=== PATIENT | female | born 1975 | race Two or more races ===

== ENCOUNTER 2016-11-13 13:37 | Inpatient (IN) ==
[2016-11-13] MEDS ORDERED: ONDANSETRON 4 MG/2 ML VIAL IV PRN (14:25)
[2016-11-13] MEDS ORDERED: BUTORPHANOL 2 MG/ML VIAL IV PRN (14:25)
[2016-11-13] MEDS ORDERED: MEPERIDINE 50 MG/1 ML VIAL IV PRN (14:25)
[2016-11-13] MEDS ORDERED: OXYTOCIN/LR 20 UNIT/1,000 ML BAG IV SCH (14:30)
[2016-11-13] MEDS: LACTATED RINGERS 1,000 ML IV SCH ×2 (14:50→15:53)
[2016-11-13 14:52] LABS: Basophils % 0.3 % (0.0-0.8); Eosinophils # 0.1 10*3/uL (0.0-0.87); Eosinophils % 0.7 % (0.00-10.9); Hemoglobin 11.2 GM/DL (12.0-16.0); Immature Granulocytes % 0.5 %; Immature Granulocytes Absolute 0.04 #; Lymphocytes # 1.9 10*3/uL (1.4-4.0); Lymphocytes % 22.1 % (21.3-54.2); Mean Corpuscular Hemoglobin 32 PG (27-34); Mean Corpuscular Volume 91.4 FL (87-102); Mean Platelet Volume 10.5 FL (9.6-12.0); Monocytes # 0.8 10*3/uL (0.11-0.8); Monocytes % 8.6 % (1.7-12.7); Neutrophils # 5.9 10*3/uL (1.4-7.4); Neutrophils % 67.8 % (38.7-73.9); Platelet Count 339 T/CUMM (130-400); Red Cell Distribution Width 12.5 % (9.3-17.3); White Blood Count 8.7 T/CUMM (4-12)
[2016-11-13 15:23] LABS: Albumin 2.3 G/DL (3.4-5.0); Bilirubin,Total 0.6 MG/DL (0.2-1.0); Calcium 9.4 MG/DL (8.5-10.1); Osmolality,Calculated 274.5 MOS/KG (273-304); Total Protein 5.8 G/DL (6.4-8.3)
--- NOTE | 2016-11-13 16:32 | OB/GYN History & Physical ---
History of Present Illness Chief complaint: In for active labor. History of present illness: Ms. Juan is a 41 year old female who is a 2 para 1 living 1 patient presented to the labor department in active labor. The risk and benefits were thoroughly discussed with the patient and her significant other through a meeting facilitator. Plan of care was discussed with Dr. Mccarty and all parties were in agreement with plan. The patient received her care through the [facility] and she received routine care her course was uneventful. labs she is O+, RPR is nonreactive, hepatitis B negative, HIV negative, GC chlamydia cultures negative, rubella is immune. Review of systems is negative with exception of above. The patient has had 1 previous vaginal delivery and that weighed 7-1/2 pounds and she reported no complications with that . Home Medications Medication Instructions Recorded Confirmed Type Multivitamin () [ 1 tablet PO DAILY 11/13/16 11/13/16 History Vitamin] Allergies Allergy/AdvReac Type Severity Reaction Status Date / Time No Known Allergies Allergy Verified 11/13/16 14:24 12 point system: reviewed and no additional remarkable complaints except as stated Medical,Surgical,& Family Hx - Medical History Medical History: noncontributory - Surgical History Surgical History: noncontributory - Family History Family History: noncontributory - Social History Smoking Status: Never smoker Frequency of Alcohol Use: None Type of Drug Use: None Marital Status: Lives With:: Spouse Functional capacity: independent ambulation 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 - Constitutional Vitals: Vital Signs Pulse BP Pulse Ox 11/13/16 16:00 82 121/67 99 General appearance: mild distress - Antepartum / Post Post Exam Cervix - Dilatation: 6 cm Effacement: 80% Station: -1 Rupture: Intact Presentation: Vertex Heart Rate: 130s-140 Breast: bilateral: normal Abdomen obstetrics: Present: bowel sounds normal Vagina: Present: normal moisture, discharge Cervix: Present: normal Uterus exam: Present: enlarged Anus/Rectum: Present: normal perianal skin - Respiratory Respiratory exam: Present: clear to auscultation bilaterally - Cardiovascular Cardiovascular exam: Present: regular rate and rhythm - GI/Abdominal GI/Abdominal exam: Present: normal bowel sounds - Extremities Exam Extremities exam: Present: normal inspection - Neurological Exam Neurological exam: Present: alert, oriented X3 - Psychiatric Psychiatric exam: Present: normal affect, normal mood - Skin Skin exam: Present: normal color, warm Assessment and Plan (1) Active labor at term Status: Acute Assessment and plan: Admit IV fluids IV Pitocin per protocol Artificial rupture membranes when appropriate Internal monitors if indicated Epidural anesthesia if desired Anticipate [id number] Current Visit: Yes Results - Labs CBC & BMP: 11/13/16 14:46 11/13/16 14:46
[2016-11-13] MEDS ORDERED: LIDOCAINE 1% 50 ML VIAL ONE (16:37)
[2016-11-13 17:28] LABS: Cord Arterial Blood HCO3 20.5 MMOL/L
[2016-11-13 17:30] LABS: Cord Venous Blood HCO3 23.5 MMOL/L; Cord Venous Blood PO2 27.4 MMHG
[2016-11-13] MEDS ORDERED: MEASLES/MUMPS/RUBELLA VACCINE 0.5 ML VIAL SUBCUT ONE (17:31)
[2016-11-13] MEDS ORDERED: DIPH/TET/ACEL PERT BOOSTER VACCINE 0.5 ML VIAL IM ONE (17:31)
[2016-11-13] MEDS ORDERED: WITCH HAZEL PADS 100/JAR TOP PRN (17:31)
[2016-11-13] MEDS ORDERED: ACETAMINOPHEN 325 MG TABLET PO PRN (17:31)
[2016-11-13] MEDS ORDERED: RHO(D) IMMUNE GLOBULIN 300 MCG SYRINGE IM ONE (17:31)
[2016-11-13] MEDS ORDERED: BENZOCAINE 20%/MENTHOL 0.5% SPRAY 56 GM CAN TOP PRN (17:31)
[2016-11-13] MEDS ORDERED: OXYTOCIN/LR 20 UNIT/1,000 ML BAG IV ONE (17:31)
[2016-11-13] MEDS ORDERED: HYDROCORTISONE 2.5% RECTAL CREAM 30 GM TUBE TOP PRN (17:31)
[2016-11-13] MEDS ORDERED: BISACODYL 10 MG SUPP RECTAL PRN (17:31)
[2016-11-13] MEDS ORDERED: oxyCODONE/ACETAMINOPHEN 5-325 MG TABLET PO PRN (17:31)
[2016-11-13] MEDS ORDERED: LANOLIN 50% CREAM 0.3 OZ TUBE TOP PRN (17:31)
--- NOTE | 2016-11-13 17:31 | Event Note ---
HPI: Ms. Tone jose presented to the labor department in active labor. The risk and benefits were thoroughly discussed with the patient and significant other, plan of care was discussed with Dr. Mccarty and all parties were in agreement plan. Stage I: The patient was admitted she received IV fluids and IV Pitocin per protocol. Artificial rupture membranes was performed with clear fluid noted. The patient did not want an epidural and she progressed in labor naturally. She had an uneventful course of labor. Maternal vital signs were within normal limits. Stage II: The patient was complete and complained of pressure and desire to push. She pushed for approximately 30 minutes after which time the patient started to experience exhaustion therefore a second-degree midline episiotomy was performed. 1% lidocaine was utilized to anesthetize the area prior to the episiotomy. The infant's head was then delivered the mouth and nose were suctioned on the perineum. The remainder of the infant was delivered at 1706, a viable male was noted. The infant was placed on the mom's abdomen for skin to skin bonding. weight was 6 pounds and 14 ounces. Apgars were 9 at 1 minute and 9 at 5 minutes. A cord pH was obtained and sent to the lab. Stage III: A spontaneous delivery of a Whyte placenta with a three-vessel cord noted. The placenta was further examined and appeared to have a shortened cord less than 12 inches. Otherwise unremarkable. The vagina and cervix was inspected with no additional tears or lacerations noted. The episiotomy was repaired in the usual fashion. 1% lidocaine was utilized to anesthetize the area. The patient tolerated the procedure well. Estimated blood loss was approximately 50 cc. At the time of dictation mother and baby are both in stable condition.
[2016-11-13] MEDS ORDERED: ACETAMINOPHEN/CODEINE 300-30 MG TABLET PO PRN (17:34)
[2016-11-13] MEDS: IBUPROFEN 800 MG TABLET PO PRN ×2 (18:15→23:50)
[2016-11-13] MEDS: DOCUSATE SODIUM 100 MG CAPSULE PO SCH (21:44)
[2016-11-13] MEDS: oxyCODONE/ACETAMINOPHEN 5-325 MG TABLET PO PRN (23:50)
[2016-11-14] MEDS: oxyCODONE/ACETAMINOPHEN 5-325 MG TABLET PO PRN (05:20)
[2016-11-14] MEDS: IBUPROFEN 800 MG TABLET PO PRN ×3 (05:20→21:21)
[2016-11-14 06:10] LABS: Basophils % 0.2 % (0.0-0.8); Eosinophils # 0.1 10*3/uL (0.0-0.87); Hematocrit 29.8 VOL% (35.7-47.0); Immature Granulocytes % 0.5 %; Immature Granulocytes Absolute 0.05 #; Lymphocytes # 2.5 10*3/uL (1.4-4.0); Lymphocytes % 23.5 % (21.3-54.2); Mean Corpuscular HGB Conc 33.6 GM/DL (32-36); Mean Corpuscular Hemoglobin 31 PG (27-34); Mean Corpuscular Volume 92.5 FL (87-102); Mean Platelet Volume 10.6 FL (9.6-12.0); Monocytes # 0.7 10*3/uL (0.11-0.8); Monocytes % 6.4 % (1.7-12.7); Neutrophils # 7.4 10*3/uL (1.4-7.4); Neutrophils % 68.4 % (38.7-73.9); Platelet Count 292 T/CUMM (130-400); Red Blood Count 3.22 MC/CUMM (3.8-5.5); Red Cell Distribution Width 12.4 % (9.3-17.3); White Blood Count 10.8 T/CUMM (4-12)
[2016-11-14] MEDS: DOCUSATE SODIUM 100 MG CAPSULE PO SCH ×2 (09:14→21:21)
--- NOTE | 2016-11-14 15:19 | OB/GYN Progress Note ---
Assessment and Plan (1) Active labor at term Status: Acute Assessment and plan: Admit IV fluids IV Pitocin per protocol Artificial rupture membranes when appropriate Internal monitors if indicated Epidural anesthesia if desired Anticipate [id number] Current Visit: Yes (2) Vaginal delivery Status: Acute Assessment and plan: Initiate routine orders. 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 Bonding well with . 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 - Constitutional Vitals: Vital Signs Temp Pulse Resp BP Pulse Ox 11/14/16 11:30 97 F L 70 18 108/56 97 11/14/16 07:28 97.4 F L 63 18 103/56 97 11/14/16 04:00 96.3 F L 63 18 112/66 100 11/14/16 02:00 20 11/13/16 19:50 97.4 F L 71 20 133/73 100 11/13/16 16:00 82 121/67 99 General appearance: no acute distress - Antepartum / Post Antepartum Exam Breast: bilateral: normal Abdomen obstetrics: Present: bowel sounds normal Vulva: bilateral: normal Vagina: Present: normal moisture, discharge Cervix: Present: normal Uterus exam: Present: enlarged Anus/Rectum: Present: normal perianal skin - Gyencological / Post Surgical Post Surgical Exam Lungs: bilateral: normal Chest: Normal S1, Normal S2 Extremities 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: Present: normal Abdomen obstetrics progress note: Present: normal appearance Incision OB: Present: normal, intact - Head Head exam: Present: normal inspection - Respiratory Respiratory exam: Present: clear to auscultation bilaterally - Cardiovascular Cardiovascular exam: Present: regular rate and rhythm - GI/Abdominal GI/Abdominal exam: Present: normal bowel sounds, soft - Extremities Exam Extremities exam: Present: normal inspection - Neurological Exam Neurological exam: Present: alert, oriented X3 - Psychiatric Psychiatric exam: Present: normal affect, normal mood - Skin Skin exam: Present: normal color, warm Results - Labs CBC & BMP: 11/14/16 05:47 11/13/16 14:46
[2016-11-15 07:51] VITALS: BP 115/61
[2016-11-15] MEDS: DOCUSATE SODIUM 100 MG CAPSULE PO SCH (09:29)
--- NOTE | 2016-11-15 10:24 | Discharge Summary ---
Hospital Course - Hospital Course Hospital Course: Ms. Juan presented to the labor department in active labor. She subsequently delivered a viable with no complications. She has followed a normal post course and she has done well. Her bleeding is minimal with no odor. She denies any discomfort. Her perineum is intact with no edema. Her vital signs and lab values are stable. She is bonding well with her infant. Her fundus is firm and midline. She will be discharged home prescriptions for pain and follow-up appointment in our office Diagnosis - Discharge Diagnosis (1) Active labor at term Status: Acute (2) Vaginal delivery Status: Acute Specialty Discharge - Follow Up or Referrals Follow up with: Jose Mccarty MD [Primary Care Provider] - 2 Weeks Discharge Plan - Discharge Data Disposition: Disch To Home/Self Care Condition at Discharge: Stable Discharge Diet: advance to your usual diet Activity: resume usual activities as tolerated Hygiene: may shower Weight Bearing at Discharge: weight bear as tolerated Driving: no restrictions Contact your physician if you experience:: fever over 101, pain uncontrolled by pain medications - Discharge Medications New Ibuprofen Tab [Motrin Tab] 800 mg PO Q6H PRN #30 tablet PRN Reason: Pain Moderate (4-7) Acetamin/Codeine 300-30 Tab [Tylenol/Codeine #3] 2 tablet PO Q6H PRN #30 tablet PRN Reason: Pain Mild (1-3) No Action Multivitamin () [ Vitamin] 1 tablet PO DAILY - Follow Up or Referral - Forms/Instructions Instructions: Perineal Care (DC), Vaginal Delivery (DC), Bleeding (DC) Exam - Constitutional Vitals: Period Temp Pulse Resp BP Sys/Chery Pulse Ox Last 24 Hr 96.7 F-97.8 F 64-74 18-20 108-127/56-68 96-100 General appearance: no acute distress - Head Head exam: Present: normal inspection - Respiratory Respiratory exam: Present: clear to auscultation bilaterally - Cardiovascular Cardiovascular exam: Present: regular rate and rhythm - GI/Abdominal GI/Abdominal exam: Present: normal bowel sounds, soft - Extremities Exam Extremities exam: Present: normal inspection - Back Exam Back exam: Present: normal inspection - Neurological Exam Neurological exam: Present: alert, oriented X3 - Psychiatric Psychiatric exam: Present: normal affect, normal mood - Skin Skin exam: Present: normal color, warm DS: Provider Date of admission: 11/13/16 14:25 Primary care physician: Jose Mccarty MD Attending physician on admission: Jose Mccarty MD Consults: 11/13/16 17:32 Consult to Wild Life Photographer [CONS] Routine Consult Wild Life Photographer: Breast Feeding Discharging clinician: Karla Mariano CNM Expected date of discharge: 11/15/16
== END 2016-11-15 12:15 | disposition home or self-care (01) | DRG 775 ==
LOC: N.LDOUT 13:37 → N.LD 13:43 → N.OB 21:59 → UNDODISIN 11-15 12:10
PROVIDERS: ADMIT Obstetrics & Gynecology; ATTEND Obstetrics & Gynecology